=== PATIENT | male | born 1980 | race Caucasian/White ===

== ENCOUNTER 2017-10-02 09:41 | Inpatient (IN) | payer OTHER ==
[~2017-10-02] VITALS: Ht 172.7 cm; Wt 54.4 kg
[2017-10-02 12:05] VITALS: BP 132/84
--- NOTE | 2017-10-02 12:10 | NUR ---
Pre-Admission Pre-admission assessment performed in the intake department of [facility]. Pt is a 37 yo male who has been heroin and methamphetamine. He is A&O and ambulatory with a steady gait. He appears mildly intoxicated and answers questions appropriately. Pt appears underweight and disheveled. He is drinking a boost protein drink during the intake process. Pt last used heroin and meth two hours ago. He is stable and admission is [facility].
[2017-10-02] MEDS ORDERED: FLUO-120 PO (12:17)
[2017-10-02] MEDS ORDERED: MIRALAX 17 GM POWD.PACK PO PRN (12:30)
[2017-10-02] MEDS ORDERED: HYDROXYZINE PAMOATE 25 MG CAPSULE PO PRN (12:30)
[2017-10-02] MEDS ORDERED: IBUPROFEN 600 MG TABLET PO PRN (12:30)
[2017-10-02] MEDS ORDERED: ONDANSETRON 4 MG/2 ML VIAL IM PRN (12:30)
[2017-10-02] MEDS ORDERED: CLONIDINE HCL 0.1 MG TABLET PO PRN (12:30)
[2017-10-02] MEDS ORDERED: LORAZEPAM 1 MG TABLET PO PRN (12:30)
[2017-10-02] MEDS ORDERED: LOPERAMIDE HCL 2 MG CAPSULE PO PRN ×2 (12:30)
[2017-10-02] MEDS ORDERED: METHOCARBAMOL 750 MG TABLET PO PRN (12:30)
[2017-10-02] MEDS ORDERED: MAGNESIUM HYDROXIDE 30 ML LIQUID UDC PO PRN (12:30)
[2017-10-02] MEDS ORDERED: MAG HYDROX/AL HYDROX/SIMETH 30 ML LIQUID UDC PO PRN (12:30)
[2017-10-02] MEDS ORDERED: DICYCLOMINE HCL 20 MG TABLET PO PRN (12:30)
[2017-10-02] MEDS ORDERED: diphenhydrAMINE 50 MG CAPSULE PO PRN (12:30)
[2017-10-02] MEDS ORDERED: BUPRENORPHINE HCL 2 MG TAB.SUBL SL PRN (12:30)
[2017-10-02] MEDS ORDERED: ACETAMINOPHEN 325 MG TABLET PO PRN (12:30)
[2017-10-02] MEDS ORDERED: ONDANSETRON ODT 4 MG TAB.RAPDIS SL PRN (12:30)
--- NOTE | 2017-10-02 13:50 | NUR ---
ADMISSION Pt is a 37 yo male who [facility] at 1225 on 10/02/17 for medically supervised detox. He is A&O and ambulatory with a steady gait. He appears mildly intoxicated and answers questions appropriately. He is observed with a flat affect, poor eye contact, and is slightly agitated during the admission process. He appears underweight. Pt is unkempt with dirty hands and feet. His finger nails are grown out and he is odorous. Vital signs: 132/84, HR 112, RR 16, O2 sat 97%, pain 0/10. Pt is 5'8" and weighs 120lb. Lung sounds clear, heart rhythm regular but tachycardic, PERRLA, bowel sounds present, skin is intact. Last bowel movement was today. He denies any seizure history or past medical history. He does report depression for which he was prescribed fluoxetine but has not taken. History of Substance Use: 1) Heroin oral inhalation 1 gram per day for the past 18 months. Last used 0.5grams today at 1000. He started using heroin 10 years ago. 2) Methamphetamine 1 gram per week for the past 1 month. Last used 0.3 grams today at 1000. He started using meth 1 year ago. Pt reports a past history of crack cocaine use. Pt reports a past history of crack cocaine use. He smokes 7 cigarettes per day. He lives at home with his family and his sister helped get him into treatment. He decided to come to treatment today because "I can't use no more. I lost my job 4 years ago. I have to go to a program to get my job back". Pt was formerly employed as a truck diver. He deals with stress by "using drugs". Symptoms when he doesn't use include "chills, restless legs, stomach cramps, can't sleep, I get mad". He has been to treatment 7-8 times since he starting using. Last treatment was in [place] 20 days ago. His longest period of sobriety was 6 months. He cannot recall the name of his primary care physician but states he does not see him often. Pt educated regarding plan of care, reportable signs symptoms, medication regimen, group therapy, and use of call light. He verbalized understanding. Safety measures in place.
--- NOTE | 2017-10-02 14:20 | NUR ---
AMA Pt left AMA. He refused to comply with treatment. Pt educated about the risks and consequences of leaving AMA. Pt verbalized understanding but was adamant about leaving. Multiple staff members attempted to reason with patient without any success. Vital signs stable and skin intact. He denied SI/HI. MD and Psychiatrist were made aware. Pt was provided a list of community resources. AMA forms explained and signed. All belongings returned to patient. He left facility AMA on 10/02/17 at 1415.
[2017-10-02] MEDS ORDERED: LORAZEPAM 1 MG TABLET PO SCH (21:00)
[2017-10-03] MEDS ORDERED: TUBERCULIN,PURIF.PROT.DERIV. 5 TU/0.1 ML TEST ID ONE (09:00)
[2017-10-03] MEDS ORDERED: BUPRENORPHINE HCL 2 MG TAB.SUBL SL SCH (09:00)
[2017-10-04] MEDS ORDERED: BUPRENORPHINE HCL 2 MG TAB.SUBL SL SCH ×2 (09:00→15:00)
[2017-10-05] MEDS ORDERED: BUPRENORPHINE HCL 2 MG TAB.SUBL SL SCH (09:00)
[2017-10-06] MEDS ORDERED: BUPRENORPHINE HCL 2 MG TAB.SUBL SL SCH (09:00)
== END 2017-10-02 14:15 | disposition left against medical advice (07) | DRG 894 ==
LOC: SRC 11:42
PROVIDERS: ADMIT Internal Medicine; ATTEND Internal Medicine
DX: F11.229 Opioid dependence with intoxication, unspecified (principal); F15.10 Other stimulant abuse, uncomplicated; F32.9 Major depressive disorder, single episode, unspecified; F17.210 Nicotine dependence, cigarettes, uncomplicated
CPT/HCPCS: 80324; 80353; 80361